=== PATIENT | female | born 1950 | race African-American/Black ===

== ENCOUNTER 2021-04-28 22:09 | Emergency (ER) | payer MEDICARE, OTHER ==
[~2021-04-28] VITALS: Ht 162.6 cm; Wt 63.0 kg
[2021-04-28 22:09] VITALS: BP 184/89
[~2021-04-28 22:09] MED LIST: GABA300C10; LOSA-69 PO; METF-370 PO; OXYC30TA50
[2021-04-28 23:30] LABS: Basophils # (auto) 0 10 ^3/uL (0-0.2); Basophils % (auto) 0.6 % (0.0-2.0); Eosinophils # (auto) 0 10 ^3/uL (0-0.8); Eosinophils % (auto) 0.7 % (0.0-7.0); Hematocrit 40.6 % (36.0-46.0); Lymphocytes # (auto) 1.4 10 ^3/uL (0.4-5.4); Lymphocytes % (auto) 24.8 % (10.0-50.0); Mean Corpuscular Hemoglobin 23.9 pg (28.0-32.0); Mean Corpuscular Volume 74.6 fL (80.0-100.0); Monocytes # (auto) 0.5 10 ^3/uL (0-1.3); Monocytes % (auto) 8.9 % (0.0-12.0); Neutrophils # (auto) 3.7 10 ^3/uL (1.6-8.6); Nucleated Red Blood Cells % 0.3 %; Red Blood Cells 5.45 10^6/uL (4.0-5.20); Red Cell Distribution Width 15.3 % (11.8-14.3); White Blood Cell 5.7 10^3/uL (4.4-10.8)
[2021-04-28 23:47] LABS: Albumin 3.9 g/dL (3.4-5.0); Calcium 8.5 mg/dL (8.5-10.1); Magnesium 2.3 mg/dL (1.6-2.6)
[2021-04-28 23:54] LABS: BUN/Creatinine Ratio 26.2; Bilirubin, Total 0.2 mg/dL (0.2-1.0); Total Protein 8.8 g/dL (6.4-8.2)
== END 2021-04-29 01:48 | disposition left against medical advice (07) ==
LOC: ER 22:09
DX: R07.89 Other chest pain (principal); M21.332 Wrist drop, left wrist; I10 Essential (primary) hypertension; E11.9 Type 2 diabetes mellitus without complications; Z79.899 Other long term (current) drug therapy
CPT/HCPCS: 36415; 71045; 80053; 83735; 84484; 85025; 93005

== ENCOUNTER 2023-12-07 17:10 | Emergency (ER) | payer MEDICARE, OTHER ==
[~2023-12-07] VITALS: Ht 172.7 cm; Wt 72.7 kg
[~2023-12-07 17:10] MED LIST changes: +GABA-1250; -GABA300C10; +LOSA-534 PO; -LOSA-69 PO
[2023-12-07 18:25] VITALS: BP 169/78; PULSE 93; RESP 18; O2SAT 98
[2023-12-07] MEDS: MORPHINE SULFATE INJ 2 MG/ml SYRG IM ONE (19:35)
[2023-12-07] MEDS: ONDANSETRON ODT 4 MG TAB PO ONE (19:36)
[2023-12-07] MEDS: HYDROcodone-ACET 10/325MG TAB PO ONE (20:04)
== END 2023-12-07 20:23 | disposition home or self-care (01) ==
LOC: ER 17:10 → EDBD 17:10 → EDSEX 17:10 → ER 20:23
DX: S82.001A Unspecified fracture of right patella, initial encounter for closed fracture (principal); E11.9 Type 2 diabetes mellitus without complications; I10 Essential (primary) hypertension; Z88.6 Allergy status to analgesic agent; W18.09XA Striking against other object with subsequent fall, initial encounter; Y93.89 Activity, other specified; Y92.89 Other specified places as the place of occurrence of the external cause; Y99.8 Other external cause status
CPT/HCPCS: 73562; 93971; Q0162